=== PATIENT | female | born 1995 | race African-American/Black ===

== ENCOUNTER 2019-11-16 18:28 | Emergency (ER) | payer OTHER, SELFPAY ==
[2019-11-16 18:30] VITALS: BP 139/77; PULSE 106; RESP 16; TEMP 36.9; O2SAT 100
--- NOTE | 2019-11-16 19:05 | PC.NURSE ---
report received at this time. pt resting on chair, denies any needs/concerns. will continue to monitor pt for baseline status changes.
--- NOTE | 2019-11-16 19:07 | ED.EAR ---
HPI - Ear Problem General Chief complaint: Ear <Cheyenne Leigh PA-C - Last Filed: 11/16/19 19:48> Stated complaint: Ear Pain <Cheyenne Leigh PA-C - Last Filed: 11/16/19 19:48> Time Seen by Provider: 11/16/19 18:36 <Cheyenne Leigh PA-C - Last Filed: 11/16/19 19:48> Source: patient <Cheyenne Leigh PA-C - Last Filed: 11/16/19 19:48> Mode of arrival: ambulatory <Cheyenne Leigh PA-C - Last Filed: 11/16/19 19:48> Limitations: no limitations <Cheyenne Leigh PA-C - Last Filed: 11/16/19 19:48> History of Present Illness HPI Narrative: This is a 24 year old female that presents to the ER for right ear pain x 3 days. Reports she has had a lot of trouble with ear infections. Denies fever or drainage. <Cheyenne Leigh PA-C - Last Filed: 11/16/19 19:48> Related Data Allergies/adverse reactions: Allergies Allergy/AdvReac Type Severity Reaction Status Date / Time No Known Allergies Allergy Unverified 08/07/18 11:14 <Cheyenne Leigh PA-C - Last Filed: 11/16/19 19:48> Review of Systems Review of Systems: Narrative: CONSTITUTIONAL: Denies fever ENT: Reports otalgia. <Cheyenne Leigh PA-C - Last Filed: 11/16/19 19:48> All systems reviewed & are unremarkable except as noted in HPI and below <Cheyenne Leigh PA-C - Last Filed: 11/16/19 19:48> PMFSH Past Medical History Medical History: Medical History (Updated 11/16/19 @ 19:46 by Cheyenne Leigh PA-C) No active medical problems <Cheyenne Leigh PA-C - Last Filed: 11/16/19 19:48> Social History Social History: Social History (Updated 11/16/19 @ 19:10 by Cheyenne Leigh PA-C) Smoking status: Never smoker <Cheyenne Leigh PA-C - Last Filed: 11/16/19 19:48> Exam Narrative: Exam Narrative: GENERAL: Well-appearing, well-nourished, and in no acute distress. HEAD: Normocephalic, atraumatic. EYES: EOMI. ENT: Left TM pearly no non-bulging. Right external auditory canal with moderate edema and irritation NECK: Supple. No adenopathy or masses. EXTREMITIES: Normal range of motion. No edema. SKIN: Warm, dry, no rash. NEURO: No focal deficits. Alert and oriented x3. PSYCH: Normal mood and affect <Cheyenne Leigh PA-C - Last Filed: 11/16/19 19:48> Course Vital Signs Vital signs: Vital Signs Temperature 36.9 C 11/16/19 18:30 Pulse Rate 106 H 11/16/19 18:30 Respiratory Rate 16 11/16/19 18:30 Blood Pressure 139/77 11/16/19 18:30 Pulse Oximetry 100 11/16/19 18:30 Temperature 36.9 C 11/16/19 18:30 Pulse Rate 77 11/16/19 19:50 Respiratory Rate 17 11/16/19 19:50 Blood Pressure 139/77 11/16/19 18:30 Pulse Oximetry 99 11/16/19 19:50 <Cheyenne Leigh PA-C - Last Filed: 11/16/19 19:48> Vital Signs Temperature 36.9 C 11/16/19 18:30 Pulse Rate 106 H 11/16/19 18:30 Respiratory Rate 16 11/16/19 18:30 Blood Pressure 139/77 11/16/19 18:30 Pulse Oximetry 100 11/16/19 18:30 Temperature 36.9 C 11/16/19 18:30 Pulse Rate 77 11/16/19 19:50 Respiratory Rate 17 11/16/19 19:50 Blood Pressure 139/77 11/16/19 18:30 Pulse Oximetry 99 11/16/19 19:50 <Shawna Bran MD - Last Filed: 11/16/19 19:59> Medical Decision Making Vital Signs Vital Signs: Vital Signs Temperature 36.9 C 11/16/19 18:30 Pulse Rate 106 H 11/16/19 18:30 Respiratory Rate 16 11/16/19 18:30 Blood Pressure 139/77 11/16/19 18:30 Pulse Oximetry 100 11/16/19 18:30 Temperature 36.9 C 11/16/19 18:30 Pulse Rate 77 11/16/19 19:50 Respiratory Rate 17 11/16/19 19:50 Blood Pressure 139/77 11/16/19 18:30 Pulse Oximetry 99 11/16/19 19:50 <Cheyenne Leigh PA-C - Last Filed: 11/16/19 19:48> Vital Signs Temperature 36.9 C 11/16/19 18:30 Pulse Rate 106 H 11/16/19 18:30 Respiratory Rate 16 11/16/19 18:30 Blood Pressure 139/77 11/16/19 18:30 Pulse Oximetry 100 11/16/19 18:30 Temperature 36.9
[2019-11-16 19:50] VITALS: PULSE 77; RESP 17; O2SAT 99
== END 2019-11-16 19:51 | disposition home or self-care (01) ==
PROVIDERS: Emergency Provider Emergency Medicine
DX: H60.501 Unspecified acute noninfective otitis externa, right ear (principal)
CPT/HCPCS: 99283; A9270

== ENCOUNTER 2020-07-24 15:12 | Emergency (ER) | payer OTHER, SELFPAY ==
[2020-07-24 15:34] VITALS: BP 135/82; PULSE 78; RESP 18; TEMP 37; O2SAT 100
[2020-07-24 16:42] LABS: Add Urine Microscopic? YES; Appearance Urine Cloudy (Clear); Bacteria Urine Trace /hpf; Bilirubin Urine Negative (Negative); Color Urine Yellow (Yellow); Glucose Urine UA Negative (Negative); Ketones Urine Negative (Negative); Leukocyte Esterase Ur 3+ LEU/UL (Negative); Mucus Urine Rare /lpf; Nitrate Urine Negative (Negative); Protein Urine Negative (Negative); Specific Grav Ur 1.011 (1.001-1.035); Squamous Epithelial Cell Urine Many /hpf (Few); Urobilinogen Urine Negative mg/dL (<2.0)
[2020-07-24 16:47] LABS: Blood Urine Negative (Negative)
--- NOTE | 2020-07-24 17:36 | ED.GENADULT ---
HPI - General Adult General Chief complaint: Unspecified Stated complaint: vag irritation Time Seen by Provider: 07/24/20 16:33 Source: patient Mode of arrival: ambulatory Limitations: no limitations History of Present Illness HPI narrative: This is a 24-year-old female that presents to the emergency department for dysuria x2 days. Associated with vulvovaginal irritation and itching. Denies fever, flank pain, or hematuria. Related Data Allergies Allergy/AdvReac Type Severity Reaction Status Date / Time No Known Allergies Allergy Unverified 08/07/18 11:14 Review of Systems Review of Systems: Narrative: CONSTITUTIONAL: Denies fever GASTROINTESTINAL: Denies abdominal pain, nausea, vomiting GENITOURINARY: Reports dysuria. Denies hematuria. SKIN: Denies rash All systems reviewed & are unremarkable except as noted in HPI and below PMFSH Past Medical History Medical History (Updated 07/24/20 @ 18:35 by Cheyenne Leigh PA-C) No active medical problems Social History Social History (Updated 11/16/19 @ 19:10 by Cheyenne Leigh PA-C) Smoking status: Never smoker Exam Narrative: Exam Narrative: GENERAL: Well-appearing, well-nourished, and in no acute distress. HEAD: Normocephalic, atraumatic. EYES: EOMI. CHEST: Clear to auscultation. No respiratory distress. No wheezes rales or rhonchi HEART: Regular rate and rhythm. No murmur heard. Normal peripheral pulses. ABDOMEN: Soft, nontender, nondistended, normal active bowel sounds. No CVA tenderness EXTREMITIES: Normal range of motion. No edema. SKIN: Warm, dry, no rash. NEURO: No focal deficits. Alert and oriented x3. PSYCH: Normal mood and affect PELVIC: Normal external genitalia. Moderate amount of white discharge in the vaginal vault. No CVA tenderness Course Vital Signs Vital signs: Vital Signs Temperature 98.6 F 07/24/20 15:34 Pulse Rate 78 07/24/20 15:34 Respiratory Rate 18 07/24/20 15:34 Blood Pressure 135/82 07/24/20 15:34 Pulse Oximetry 100 07/24/20 15:34 Temperature 98.6 F 07/24/20 15:34 Pulse Rate 78 07/24/20 15:34 Respiratory Rate 18 07/24/20 15:34 Blood Pressure 135/82 07/24/20 15:34 Pulse Oximetry 100 07/24/20 15:34 Medical Decision Making MDM Narrative Medical decision making narrative: Patient presents the emergency department for dysuria and vulvovaginal irritation. She is afebrile and nontoxic-appearing. UA with likely evidence of infection, also shows many squamous epithelial cells though. Bedside test is negative. Trichomonas is negative. Chlamydia, gonorrhea and genital culture were sent. Patient eloped after I saw her before any further treatment or evaluation Vital Signs Vital Signs: Vital Signs Temperature 98.6 F 07/24/20 15:34 Pulse Rate 78 07/24/20 15:34 Respiratory Rate 18 07/24/20 15:34 Blood Pressure 135/82 07/24/20 15:34 Pulse Oximetry 100 07/24/20 15:34 Temperature 98.6 F 07/24/20 15:34 Pulse Rate 78 07/24/20 15:34 Respiratory Rate 18 07/24/20 15:34 Blood Pressure 135/82 07/24/20 15:34 Pulse Oximetry 100 07/24/20 15:34 Lab Data Lab results reviewed: Yes I reviewed the patient's lab results. Labs: Lab Results 07/24/20 07/24/20 07/24/20 Range/Units 16:31 17:32 17:32 Urine Color Yellow (Yellow) Urine Appearance Cloudy H (Clear) Urine pH 6.0 (5.0-9.0) Ur Specific [place] 1.011 (1.001-1.035) Urine Protein Negative (Negative) mg/dL Urine Glucose (UA) Negative (Negative) mg/dL Urine Ketones Negative (Negative) mg/dL Ur Blood (Man) Negative (Negative) Urine Nitrate Negative (Negative) Urine Bilirubin Negative (Negative) Urine Urobilinogen Negative (<2.0) mg/dL Leukocyte Esterase Rfl 3+ H (Negative) ELAINE/UL Urine RBC 6-10 H (0-2) /hpf Urine WBC 10-15 H /hpf Ur Squamous Epith Cells Many H (Few) /hpf Urine Bacteria Trace /hpf Urine Mucus Rare /l
[2020-07-24] MEDS: FLUCONAZOLE 150 MG TABLET PO (17:46)
--- NOTE | 2020-07-24 18:32 | PC.NURSE ---
Pt out to nurses station states she has to leave because she has to work. Asked if we could email her discharge instructions. Informed pt that no we could not. Pt walk out door, Informed VENKAT Leigh of this.
== END 2020-07-24 18:32 | disposition left against medical advice (07) ==
PROVIDERS: Physician Assistant; Emergency Provider Emergency Medicine
DX: N39.0 Urinary tract infection, site not specified (principal)
CPT/HCPCS: 81001; 81025; 87070; 87077; 87086; 87088; 87491; 87591; 87808; 99284; A9270